=== PATIENT | female | born 1930 | race Caucasian/White ===

== ENCOUNTER 2017-03-15 11:15 | Observation (INO) ==
--- NOTE | 2017-03-15 11:39 | Emergency Department Note ---
Disposition Clinical Impression: Hypernatremia, Confusion Disposition: Admitted As Inpatient Condition: Fair Referrals: Vinod Roberson MD [Primary Care Provider] - Flavia Redmond [Family Provider] - Forms: ED Satisfaction Letter Time of Disposition: 13:18 Recheck wound or abnormal lab - General Chief Complaint: ED Recheck/Abnormal Lab/Rx Stated Complaint: "hypernatremia" Time Seen by Provider: 03/15/17 11:16 Source: EMS Mode of arrival: ambulatory Limitations: other Nursing Notes Reviewed: Yes Vital Signs Reviewed: Yes - History of Present Illness HPI Narrative: 87-year-old who was found to have a sodium of 155 seen by nephrology today sent in because of some increased confusion. The patient does have a history of dementia. On evaluation on arrival the patient does answer questions confused on date will not answer location. Pt Subjective Complaint: abnormal lab(s) Symptoms Since Prior Visit: fever (Confusion) Context: other (Patient was seen by nephrology and sent in for evaluation.) - Related Data Allergies Allergy/AdvReac Type Severity Reaction Status Date / Time duloxetine [From Cymbalta] Allergy See Verified 03/15/17 11:28 Comments levofloxacin [From Levaquin] Allergy See Verified 03/15/17 11:28 Comments pregabalin [From Lyrica] Allergy See Verified 03/15/17 11:28 Comments All systems ED: reviewed and negative except as stated. Constitutional: Denies: fever, chills, weakness, weight change Eyes: Denies: eye pain, eye discharge, vision change ENT ED: Denies: ear pain, throat pain, dental pain, hearing loss, epistaxis, congestion, dysphagia Cardiovascular: Denies: chest pain, palpitations, dyspnea on exertion, edema, syncope Respiratory: Denies: cough, dyspnea, wheezes, hemoptysis, stridor Gastrointestinal: Denies: abdominal pain, nausea, vomiting, diarrhea, constipation, hematemesis, melena, hematochezia Genitourinary: Denies: dysuria, frequency, hematuria, discharge Musculoskeletal: Denies: back pain, neck pain, arthralgia, myalgia Integumentary: Denies: rash, abrasion, lesions Neurological: Reports: confusion. Denies: headache, weakness, numbness, paresthesias, abnormal gait, vertigo Psychiatric: Denies: anxiety, depression, suicidal thoughts, homicidal thoughts , auditory hallucinations, visual hallucinations Endocrine: Denies: fatigue Hematological/Lymphatic: Denies: easy bleeding, easy bruising Allergic/Immunologic: Denies: facial swelling, urticaria Past Medical History - Past Medical History Medical history: Reports: CVA, diabetes, hyperlipidemia, hypertension, seizures Psychiatric history: Reports: anxiety, depression, other - Social History Smoking Status: Unknown if ever smoked Smokeless Tobacco Status: No Alcohol use: Reports: unknown Drug use: Reports: unknown Physical Exam - General Limitations: other General appearance: in no apparent distress, lethargic - Head Head exam: atraumatic, normocephalic, normal inspection - Eye Eye exam: Present: normal appearance, PERRL, EOMI - ENT ENT exam: normal exam, normal oropharynx, mucous membranes moist - Neck Neck exam: Present: normal inspection, full ROM, trachea midline - Chest Chest inspection: Present: normal inspection, symmetric chest wall rise - Respiratory Respiratory exam: Present: normal lung sounds bilaterally - Cardiovascular Cardiovascular exam: Present: regular rate, normal rhythm, normal heart sounds - Abdominal Exam Abdominal exam: Present: soft, Non-Tender. Absent: tenderness, distention, guarding, rebound, rigidity - Extremities Exam Extremities exam: Present: normal inspection, full ROM. Absent: tenderness, pedal edema - Expanded Lower Extremity Exam Neurovascular/Tendon exam: Absent: motor deficit, sensory deficit, tendon deficit - Back Exam Back exam: Present: normal inspection, full ROM. Absent: tenderness - Neurological Exam Neurological exam: Present: alert, oriented X3 - Psychiatric Psychiatric exam: Present: normal affect, normal mood - Skin Skin exam: Present: warm, dry, intact, normal color Course - Reevaluation(s) Reevaluation #1: 87-year-old who comes in with some confusion and hypernatremia. Family states she's not eating or drinking very much. Consultation obtained with nephrology who recommended D5 and a low rates and he will see in consult. Time: 14:25 - Consultations Consultation #1: Stress with , recommends D5 at 50 an hour and he will see in consult Time: 13:17 Consultation #2: Discussed with Dr. Mercado, admit. Time: 14:25 Vital Signs Temperature 98.1 F 03/15/17 11:17 Pulse Rate 62 03/15/17 11:17 Respiratory Rate 12 03/15/17 11:17 Blood Pressure 154/61 03/15/17 11:17 O2 Sat by Pulse Oximetry 100 03/15/17 11:17 Temperature 98.1 F 03/15/17 11:41 Pulse Rate 60 03/15/17 13:41 Respiratory Rate 18 03/15/17 13:41 Blood Pressure 152/58 03/15/17 13:41 O2 Sat by Pulse Oximetry 100 03/15/17 13:41 Oxygen Delivery Oxygen Delivery Nasal Cannula Recheck wound or abnormal lab - Lab Data Lab results reviewed: Yes I reviewed the patient's lab results. Result diagrams: 03/15/17 11:54 03/15/17 11:54 Lab Results 03/15/17 03/15/17 03/15/17 Range/Units 11:54 11:54 11:54 WBC 5.7 (4.3-11.1) K/mcL RBC 3.73 L (3.82-4.97) M/mcL Hgb 11.9 (11.5-15.4) g/dL Hct 34.4 L (35.3-44.9) % MCV 92.2 (83.0-100.0) fL MCH 31.9 (28.0-33.3) pg MCHC 34.6 (31.6-35.5) g/dL RDW 13.8 (11.5-14.5) % Plt Count 100 L (140-400) K/mcL MPV 10.0 (9.4-12.4) fL Immature Gran % 0.4 (0-4) % Seg Neutrophils % 64.5 % Lymphocytes % 26.7 % Monocytes % 7.1 % Eosinophils % 1.1 % Basophils % 0.2 % Neutrophils # 3.7 (1.6-8.9) K/mcL Lymphocytes # 1.5 (0.6-4.6) K/mcL Monocytes # 0.4 (0.0-1.3) K/mcL Eosinophils # 0.1 (0.0-0.6) K/mcL Basophils # 0.0 (0.0-0.2) K/mcL Immature Plt Fraction 2.6 (1.1-6.1) % PT 11.6 (9.4-12.1) Seconds INR 1.1 APTT 27.7 (26.0-36.0) Seconds Sodium 148 H (136-145) mEq/L Potassium 3.1 L (3.5-5.1) mEq/L Chloride 112 H (98-107) mEq/L Carbon Dioxide 29 (23-29) mEq/L BUN 14 (8-23) mg/dL Creatinine 0.68 (0.60-1.20) mg/dL Est GFR ( Amer) > 60 (> 60) Est GFR (Non-Af Amer) > 60 (> 60) BUN/Creatinine Ratio 21 (6-26) Glucose 131 H (70-105) mg/dL Calculated Osmolality 308 H (280-300) Calcium 8.6 (8.6-10.3) mg/dL Troponin I (< 0.04) ng/mL B-Natriuretic Peptide (Less than 100) pg/mL 03/15/17 03/15/17 Range/Units 11:54 11:54 WBC (4.3-11.1) K/mcL RBC (3.82-4.97) M/mcL Hgb (11.5-15.4) g/dL Hct (35.3-44.9) % MCV (83.0-100.0) fL MCH (28.0-33.3) pg MCHC (31.6-35.5) g/dL RDW (11.5-14.5) % Plt Count (140-400) K/mcL MPV (9.4-12.4) fL Immature Gran % (0-4) % Seg Neutrophils % % Lymphocytes % % Monocytes % % Eosinophils % % Basophils % % Neutrophils # (1.6-8.9) K/mcL Lymphocytes # (0.6-4.6) K/mcL Monocytes # (0.0-1.3) K/mcL Eosinophils # (0.0-0.6) K/mcL Basophils # (0.0-0.2) K/mcL Immature Plt Fraction (1.1-6.1) % PT (9.4-12.1) Seconds INR APTT (26.0-36.0) Seconds Sodium (136-145) mEq/L Potassium (3.5-5.1) mEq/L Chloride (98-107) mEq/L Carbon Dioxide (23-29) mEq/L BUN (8-23) mg/dL Creatinine (0.60-1.20) mg/dL Est GFR ( Amer) (> 60) Est GFR (Non-Af Amer) (> 60) BUN/Creatinine Ratio (6-26) Glucose (70-105) mg/dL Calculated Osmolality (280-300) Calcium (8.6-10.3) mg/dL Troponin I 0.04 H* (< 0.04) ng/mL B-Natriuretic Peptide 224 H (Less than 100) pg/mL - Radiology Data Radiology results reviewed: Yes I reviewed the patient's radiology results. Chest X-Ray 03/15/17 11:27 IMPRESSION: Cardiomegaly with mild interstitial edema and small bilateral pleural effusions. Findings could reflect congestive heart failure in the appropriate clinical setting. D/ / 03/15/2017 12:21:08 Jazmyn Belcher MD / [email or web address] Interpreting Provider: Jazmyn Belcher MD - EKG Data EKG attestation: Yes I reviewed and interpreted this EKG. EKG shows normal: sinus rhythm Rate: normal Rhythm: NSR [place]/QRS: left axis deviation Interpretation: no acute changes, nonspecific ST-T wave changes
[2017-03-15 12:03] LABS: Hemoglobin 11.9 g/dL (11.5-15.4)
[2017-03-15 12:05] LABS: Immature Platelets 2.6 % (1.1-6.1)
[2017-03-15 12:10] LABS: INR 1.1; Prothrombin Time 11.6 Seconds (9.4-12.1)
[2017-03-15 12:12] LABS: Activated Partial Thrombo Time 27.7 Seconds (26.0-36.0)
[2017-03-15 12:16] LABS: Basophils % 0.2 %; Eosinophils # 0.1 K/mcL (0.0-0.6); Eosinophils % 1.1 %; Hematocrit 34.4 % (35.3-44.9); Immature Granulocytes % 0.4 % (0-4); Lymphocytes # 1.5 K/mcL (0.6-4.6); Lymphocytes % 26.7 %; Mean Corpuscular HGB Conc 34.6 g/dL (31.6-35.5); Mean Corpuscular Hemoglobin 31.9 pg (28.0-33.3); Mean Corpuscular Volume 92.2 fL (83.0-100.0); Monocytes # 0.4 K/mcL (0.0-1.3); Monocytes % 7.1 %; Neutrophils # 3.7 K/mcL (1.6-8.9); Platelet Count 100 K/mcL (140-400); Red Blood Count 3.73 M/mcL (3.82-4.97); Red Cell Distribution Width 13.8 % (11.5-14.5); Segmented Neutrophils % 64.5 %
[2017-03-15 12:17] LABS: BUN/Creatinine Ratio 21 (6-26); Blood Urea Nitrogen 14 mg/dL (8-23); Calcium 8.6 mg/dL (8.6-10.3); Carbon Dioxide 29 mEq/L (23-29); Chloride 112 mEq/L (98-107); Glucose 131 mg/dL (70-105); Osmolality,Calculated 308 (280-300); Potassium 3.1 mEq/L (3.5-5.1); Sodium 148 mEq/L (136-145); eGFR For African Americans > 60 (> 60); eGFR For Non-African Americans > 60 (> 60)
[2017-03-15] MEDS: D5% in Water 1,000 ML IVC SCH (13:21)
[2017-03-15] MEDS ORDERED: Potassium Chloride 20 MEQ, Lidocaine 1% 2 ML in D5% in Water 250 ML IVPB ONE (14:50)
[2017-03-15] MEDS ORDERED: *HR* LORazepam 1 MG TABLET PO PRN (14:51)
--- NOTE | 2017-03-15 14:59 | Internal Med History&Physical ---
Date of Encounter: 03/15/17 Time of Encounter: 14:55 Assessment and Plan (1) Elevated troponin Current visit: Yes Status: Acute Likely due to demand ischemia. Trend troponin. Aspirin 81 mg and beta blockers. (2) Dementia Current visit: Yes Status: Acute Dementia with functional and cognitive decline. Patient currently requires assistance with her ADLs and IADLs. [facility] lives [facility]. She started having concerns for aspiration aspiration pneumonia. Qualifiers: Qualified Code(s): F03.90 - Unspecified dementia without behavioral disturbance (3) Elevated brain natriuretic peptide (BNP) level Current visit: Yes Status: Acute Likely due to diastolic CHF. X-rays suggestive of some excessive volume. Check echocardiogram. If there is any worsening over respiratory status with gentle hydration with D5W (given for hyponatremia) we will start IV diuresis. (4) Aspiration into respiratory tract Current visit: Yes Status: Acute Patient currently on thickened diet. Consult speech for further evaluation. Qualifiers: Qualified Code(s): T17.908A - Unspecified foreign body in respiratory tract, part unspecified causing other injury, initial encounter (5) Hypernatremia Current visit: Yes Status: Acute Hypernatremia is due to decreased free water intake. We will hydrate with D5W according to nephrology recommendations. Follow sodium every 6 hours. Consult speech therapy for evaluation of her swallowing. If patients who aspirates with thin liquids would have to discuss goals of care again and whether family wants NG tube for getting free water or feeding tube. It seems that she had received in the [facility] many times D5W for her hypernatremia but still the problem persists. Internal Medicine - H&P: HPI Chief complaint: elevated Na and confsion History of present illness: Ms. Herrera is a 87 year old female with history of dementia with functional and cognitive decline currently resides at rehab facility after recent hospitalization a month ago with pneumonia presents from PCP office because of hypernatremia confusion. Patient was found at the PCP office to have a sodium level of 155. Patient was confused lethargic the past week. Patient mentioned that this has happened several times when sodium was checked at the [facility] and she had received multiple times D5 water but the problem hypernatremia persists. Patient have problem with aspiration and cannot take him liquids or water and is currently on a thickened diet. Patient has been on oxygen since last discharge from the hospital with pneumonia. Family denies any fever or chills. No diarrhea. No obvious focal weakness although family mentioned that she tends to prefer her left side. She still has some cough intermittently. There is no obvious lower extremity swelling. Past Med Surg Social Fam HX - Past Medical History Medical history: CVA, diabetes, hyperlipidemia, hypertension, seizures Psychiatric history: anxiety, depression, other - Social History Smoking Status: Unknown if ever smoked Smokeless Tobacco Status: No Alcohol use: unknown Drug use: unknown Internal Medicine - H&P: Meds Albuterol Sulfate [Ventolin Hfa] 2 puff IH Q4H PRN 03/15/17 [History] Amlodipine Besylate 10 mg PO DAILY 03/15/17 [History] Divalproex (12 HR) [Depakote (12 HR)] 500 mg PO DAILY 03/15/17 [History] Donepezil [Aricept] 10 mg PO HS 03/15/17 [History] Escitalopram [Lexapro] 20 mg PO DAILY 03/15/17 [History] Gabapentin [Neurontin] 300 mg PO TID 03/15/17 [History] Glimepiride [Amaryl] 4 mg PO QAM 03/15/17 [History] Glucagon,Human Recombinant [Glucagen] 1 mg IM ONCE PRN 03/15/17 [History] Insulin LISPRO [HumaLOG] 0 unit SQ AD 03/15/17 [History] Ipratropium/Albuterol Neb [Duoneb] 3 ml IH Q4H PRN 03/15/17 [History] LORazepam [Ativan] 1 mg PO BID 03/15/17 [History] Levothyroxine [Synthroid] 50 mcg PO 0630 03/15/17 [History] Losartan Potassium [Cozaar] 50 mg PO DAILY 03/15/17 [History] Memantine HCl 10 mg PO BID 03/15/17 [History] Oxygen 2 l NS AD 03/15/17 [History] Propranolol HCl 40 mg PO DAILY 03/15/17 [History] Quetiapine Fumarate [Seroquel] 50 mg PO QAM 03/15/17 [History] Quetiapine Fumarate [Seroquel] 150 mg PO HS 03/15/17 [History] Simvastatin [Zocor] 20 mg PO HS 03/15/17 [History] 3 Allergy/AdvReac Type Severity Reaction Status Date / Time duloxetine [From Cymbalta] Allergy See Verified 03/15/17 11:28 Comments levofloxacin [From Levaquin] Allergy See Verified 03/15/17 11:28 Comments pregabalin [From Lyrica] Allergy See Verified 03/15/17 11:28 Comments All Systems PM: A 10-system review of systems was performed and is negative for pertinent findings except as documented above in the HPI. Review of systems: Full review of systems could not be obtained given patient mental status. - Constitutional Vitals: Temp Pulse Resp BP Pulse Ox 98.1 F 60 18 152/58 100 03/15/17 11:41 03/15/17 13:41 03/15/17 13:41 03/15/17 13:41 03/15/17 13:41 Exam: Gen.: patient is alert not in distress, pleasantly demented Cardiac: normal S1 S2 no additional sounds or murmurs. Chest: crackles in bases Abdomen: soft nontender nondistended normal bowel sounds lower extremity: lax calf muscles no swelling neuro: not compliant with neuro exam but appears to be moving extremeties Internal Med - H&P Results - Labs CBC & Chem 7: 03/15/17 11:54 03/15/17 11:54 Labs: Short CBC 03/15/17 Range/Units 11:54 WBC 5.7 (4.3-11.1) K/mcL Hgb 11.9 (11.5-15.4) g/dL Hct 34.4 L (35.3-44.9) % Plt Count 100 L (140-400) K/mcL Neutrophils # 3.7 (1.6-8.9) K/mcL BMP 03/15/17 11:54 Sodium 148 H Potassium 3.1 L Chloride 112 H Carbon Dioxide 29 BUN 14 Creatinine 0.68 Glucose 131 H Calcium 8.6 Cardiac Enzymes 03/15/17 Range/Units 11:54 Troponin I 0.04 H* (< 0.04) ng/mL - Impressions ITS Impressions Chest X-Ray 03/15/17 11:27 IMPRESSION: Cardiomegaly with mild interstitial edema and small bilateral pleural effusions. Findings could reflect congestive heart failure in the appropriate clinical setting. D/ / 03/15/2017 12:21:08 Jazmyn Belcher MD / [email or web address] Interpreting Provider: Jazmyn Belcher MD
[2017-03-15] MEDS ORDERED: NON-FORMULARY MEDICATION 1 EACH EACH (Oxygen [Oxygen] 2 L) NS SCH (15:00)
[2017-03-15] MEDS ORDERED: Ipratropium/Albuterol Neb 3 ML IH PRN (16:00)
[2017-03-15] MEDS: Gabapentin 300 MG CAPSULE PO SCH ×2 (20:23→20:31)
[2017-03-15] MEDS: *HR* Heparin 5,000 UNIT/ML VIAL SQ SCH (20:38)
[2017-03-15 20:48] LABS: Potassium 3.1 mEq/L (3.5-5.1)
[2017-03-15 23:10] LABS: Bilirubin,Urine Small (Negative); Clarity,Urine Cloudy (Clear); Color,Urine Dark Yellow (Yellow); Glucose,Urine (UA) 100 mg/dL (Normal)
[2017-03-15 23:11] LABS: Blood,Urine Large (Negative); Ketones,Urine 15 mg/dL (Negative); Leukocyte Esterase,Urine Small (Negative); Nitrite,Urine Negative (Negative); Protein,Urine 100 mg/dL (Neg-Trace); Specific Gravity,Urine 1.018 (1.010-1.025); Urobilinogen,Urine Normal (Normal)
[2017-03-15 23:17] LABS: Bacteria,Urine Many per hpf (None-Few); WBC,Urine 15-30 per hpf (0-3)
[2017-03-15 23:18] LABS: RBC,Urine 30-50 per hpf (0-3); Yeast,Urine Moderate per hpf (None Seen)
[2017-03-15 23:19] LABS: Hyaline Casts,Urine None Seen per lpf (None-Few); Squamous Epithelial Cell,Urine None Seen per lpf (None-Few)
[2017-03-16 00:43] LABS: Hemoglobin 10.4 g/dL (11.5-15.4); Immature Granulocytes % 0.4 % (0-4); Mean Platelet Volume 10.2 fL (9.4-12.4); Red Cell Distribution Width 13.6 % (11.5-14.5)
[2017-03-16 00:45] LABS: Basophils % 0.2 %; Eosinophils % 0.9 %; Hematocrit 30.9 % (35.3-44.9); Immature Platelets 2.2 % (1.1-6.1); Lymphocytes # 1.6 K/mcL (0.6-4.6); Lymphocytes % 33.6 %; Mean Corpuscular HGB Conc 33.7 g/dL (31.6-35.5); Mean Corpuscular Hemoglobin 31.3 pg (28.0-33.3); Mean Corpuscular Volume 93.1 fL (83.0-100.0); Monocytes # 0.3 K/mcL (0.0-1.3); Monocytes % 6.4 %; Neutrophils # 2.8 K/mcL (1.6-8.9); Red Blood Count 3.32 M/mcL (3.82-4.97); Segmented Neutrophils % 58.5 %
[2017-03-16 00:53] LABS: Platelet Count 90 K/mcL (140-400)
[2017-03-16 01:00] LABS: BUN/Creatinine Ratio 24 (6-26); Blood Urea Nitrogen 13 mg/dL (8-23); Calcium 8.1 mg/dL (8.6-10.3); Carbon Dioxide 26 mEq/L (23-29); Chloride 111 mEq/L (98-107); Glucose 204 mg/dL (70-105); Magnesium 1.4 mg/dL (1.6-2.6); Osmolality,Calculated 304 (280-300); Potassium 2.8 mEq/L (3.5-5.1); Sodium 144 mEq/L (136-145); eGFR For African Americans > 60 (> 60); eGFR For Non-African Americans > 60 (> 60)
[2017-03-16] MEDS ORDERED: Potassium Chloride 40 MEQ, Lidocaine 1% 2 ML in D5% in Water 500 ML IVPB ONE (05:03)
[2017-03-16] MEDS: *HR* Heparin 5,000 UNIT/ML VIAL SQ SCH ×2 (05:38→18:05)
[2017-03-16] MEDS: Insulin LISPRO 300 UNITS/3 ML VIAL SQ SCH ×3 (07:26→18:05)
[2017-03-16] MEDS: Famotidine 20 MG/2 ML VIAL IVP SCH (08:27)
[2017-03-16] MEDS: amLODIPine 5 MG TABLET PO SCH (08:27)
[2017-03-16] MEDS: Gabapentin 300 MG CAPSULE PO SCH ×3 (08:27→20:33)
[2017-03-16] MEDS: Divalproex (12 HR) 500 MG TABLET PO SCH (08:30)
--- NOTE | 2017-03-16 12:03 | Electrocardiograph Report ---
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
[2017-03-16 15:40] LABS: Bilirubin,Urine Small (Negative); Blood,Urine Large (Negative); Clarity,Urine Turbid (Clear); Color,Urine Dark Yellow (Yellow); Glucose,Urine (UA) Normal (Normal); Ketones,Urine Negative (Negative); Leukocyte Esterase,Urine Moderate (Negative); Nitrite,Urine Negative (Negative); PH,Urine 5.5 pH Units (5.0-8.0); Protein,Urine Trace mg/dL (Neg-Trace); Specific Gravity,Urine 1.015 (1.010-1.025)
[2017-03-16 15:42] LABS: Bacteria,Urine Many per hpf (None-Few); Squamous Epithelial Cell,Urine Moderate per lpf (None-Few); WBC,Urine 50-100 per hpf (0-3)
[2017-03-16 16:06] LABS: Hyaline Casts,Urine Few per lpf (None-Few)
[2017-03-16 16:07] LABS: Yeast,Urine Moderate per hpf (None Seen)
--- NOTE | 2017-03-16 16:27 | Nephrology Consult Note ---
Date of Encounter: 03/16/17 Time of Encounter: 16:00 Assessment and Plan (1) Hypernatremia Current Visit: Yes Status: Acute Hypernatremia likely due to poor free water access, resolved with D5W Continue to encourage po fluids (thickened) and if unable, may need further eval for PEG (2) Hypokalemia Current Visit: Yes Status: Acute Agree with repletion already done but will likely need more to correct ongoing deficit (3) Hypomagnesemia Current Visit: Yes Status: Acute Will replete magnesium iv History of Present Illness - Reason for Consult Consult date: 03/16/17 hypernatremia Requesting physician: Rufino Ansari - History of Present Illness 87 y o female with PMH of dementia brought in from pcp's office for confusion and sodium of 155 from [facility]. He apparently has a previous history of hypoernatremia in the past and has improved overnight on D5W with last sodium noted at 141. also note was potassium of 3.1 which actually dropped down to 2.8 today with low magnesium also noted. Most of history obtained from records as patient is a poor historian and daughter who was present at bedside. No N/v/D noted. No diuretics use noted Past Med Surg Social Fam HX - Past Medical History Medical history: CVA, diabetes, hyperlipidemia, hypertension, seizures Psychiatric history: anxiety, depression, other - Social History Smoking Status: Unknown if ever smoked Smokeless Tobacco Status: No Alcohol use: unknown Drug use: unknown - Family History Mother History Unknown: Yes Medications and Allergies Albuterol Sulfate [Ventolin Hfa] 2 puff IH Q4H PRN 03/15/17 [History] Amlodipine Besylate 10 mg PO DAILY 03/15/17 [History] Divalproex (12 HR) [Depakote (12 HR)] 500 mg PO DAILY 03/15/17 [History] Donepezil [Aricept] 10 mg PO HS 03/15/17 [History] Escitalopram [Lexapro] 20 mg PO DAILY 03/15/17 [History] Gabapentin [Neurontin] 300 mg PO TID 03/15/17 [History] Glimepiride [Amaryl] 4 mg PO QAM 03/15/17 [History] Glucagon,Human Recombinant [Glucagen] 1 mg IM ONCE PRN 03/15/17 [History] Insulin LISPRO [HumaLOG] 0 unit SQ AD 03/15/17 [History] Ipratropium/Albuterol Neb [Duoneb] 3 ml IH Q4H PRN 03/15/17 [History] LORazepam [Ativan] 1 mg PO BID 03/15/17 [History] Levothyroxine [Synthroid] 50 mcg PO 0630 03/15/17 [History] Losartan Potassium [Cozaar] 50 mg PO DAILY 03/15/17 [History] Memantine HCl 10 mg PO BID 03/15/17 [History] Oxygen 2 l NS AD 03/15/17 [History] Propranolol HCl 40 mg PO DAILY 03/15/17 [History] Quetiapine Fumarate [Seroquel] 50 mg PO QAM 03/15/17 [History] Quetiapine Fumarate [Seroquel] 150 mg PO HS 03/15/17 [History] Simvastatin [Zocor] 20 mg PO HS 03/15/17 [History] 3 Allergy/AdvReac Type Severity Reaction Status Date / Time duloxetine [From Cymbalta] Allergy See Verified 03/15/17 11:28 Comments levofloxacin [From Levaquin] Allergy See Verified 03/15/17 11:28 Comments pregabalin [From Lyrica] Allergy See Verified 03/15/17 11:28 Comments Review of Systems ROS unobtainable: due to mental status Exam - Vital Signs Vital signs: Initial Vital Signs Temp Pulse Resp BP Pulse Ox 98.1 F 62 12 154/61 100 03/15/17 11:17 03/15/17 11:17 03/15/17 11:17 03/15/17 11:17 03/15/17 11:17 Vital Signs - Last 8 Hours Temp Pulse Resp BP Pulse Ox 03/16/17 15:30 98.8 F 68 17 129/68 100 03/16/17 10:54 97.4 F L 55 20 121/46 97 Intake and Output 03/16/17 03/16/17 03/16/17 07:59 15:59 23:59 Intake Total 522 / 522 Output Total 750 / 750 Balance -228 / -228 Intake: IV Fluids 522 / 522 KCl 40 MEQ Xylocaine 2 ML In 522 / 522 Dextrose 5% 500 ML @ 130.5 mls/ hr IVPB ONCE ONE Rx#:[id number] Output: Catheter 750 / 750 Other: Weight 76.8 kg Blood Glucose* 221 160 Patient Weight 03/16/17 23:59 Weight 76.8 kg - General Appearance General appearance: chronically ill, frail EENT: ATNC, mucous membranes dry Neck: no JVD, supple Respiratory: clear Cardiology: no edema, normal S1, normal S2 Gastrointestinal: no tenderness, no guarding Integumentary: warm and dry Neurologic: disoriented Musculoskeletal: no deformities Psychiatric: cooperative Results - Lab Results 03/18/17 05:27 03/18/17 05:27 Most recent lab results Calcium 8.1 mg/dL (8.6-10.3) L 03/16/17 00:21 Magnesium 1.4 mg/dL (1.6-2.6) L 03/16/17 00:21 Consult Discharge Plan - Plan Referrals: Nica Babcock MD [Primary Care Provider] - Flavia Redmond [Family Provider] -
--- NOTE | 2017-03-16 17:14 | Internal Med Progress Note ---
Date of Encounter: 03/16/17 Time of Encounter: 17:11 - Assessment and plan (1) Dementia Current Visit: Yes Status: Acute Assessment and plan: per hx. Appears to be advancing and nearing end stage as she has not a in over a month. Discussed with daughter at bedside and mentation currently at baseline ; discussed alternative nutrition sources with daughter and patient /family would not want to pressure NG, PEG tube or TPN. Daughter would like patient to be able to eat/drink regular food/thin liquids. She is aware of increased risk for aspiration and aware of risk of aspiration pneumonia leading to sepsis and possible . Daughter reports she wants her mother to have quality of life. Continue supportive care, home Namenda, Seroquel, Aricept. Encourage PO intake. Qualifiers: Qualified Code(s): F03.90 - Unspecified dementia without behavioral disturbance (2) Hypokalemia Current Visit: Yes Status: Acute Assessment and plan: K 2.8; in the setting of poor PO intake. Mg 1.4. Both replaced. Monitor repeat BMP (3) Hypothyroidism Current Visit: Yes Status: Acute Assessment and plan: per hx. Cont home levothyroxine Qualifiers: Hypothyroidism type: acquired Qualified Code(s): E03.9 - Hypothyroidism, unspecified (4) DVT prophylaxis Current Visit: Yes Status: Acute Assessment and plan: heparin - Time Spent With Patient less than 15 minutes - Subjective Interval history: Seen and examined at bedside; patient is due to me. Information obtained from chart review and ECF staff as patient has severe dementia and unable to engage in conversation or provide details. Per ECF staff, patient was more confused a normal therefore she was sent to the hospital. Unable to obtain ROS due to altered mental status. - Constitutional Vitals: Temp Pulse Resp BP Pulse Ox 98.8 F 68 17 129/68 100 03/16/17 15:30 03/16/17 15:30 03/16/17 15:30 03/16/17 15:30 03/16/17 15:30 General appearance: Present: A&O X 1, morbidly obese - Head Head exam: Present: atraumatic, normocephalic - Eye Eye exam: Present: PERRL, conjuntiva pink, sclera anicteric Pupils: Present: PERRL - Neck Neck exam general surgery: Present: supple, trachea midline. Absent: lymphadenopathy - Respiratory Respiratory exam: Present: CTAB. Absent: accessory muscle use, rales, rhonchi, wheezes - Cardiovascular Cardiovascular exam: Present: RRR, +S1, +S2. Absent: diastolic murmur, gallop, rubs, systolic murmur - GI/Abdominal GI/Abdominal exam: Present: normal bowel sounds, soft, no peritoneal signs. Absent: distended, tenderness - Extremities Exam Extremities exam: Present: warm, radial pulses palpable and symmetrical. Absent : calf tenderness, cyanotic, pedal edema - Neurological Exam Neurological exam: Present: CN II-XII intact, no focal deficits. Absent: pronater drift, facial droop, speech deficit - Skin Skin exam: Present: dry, intact Internal Medicine: Result - Labs CBC & Chem 7: 03/16/17 00:21 03/16/17 15:12 Labs: Short CBC 03/16/17 Range/Units 00:21 WBC 4.7 (4.3-11.1) K/mcL Hgb 10.4 L D (11.5-15.4) g/dL Hct 30.9 L (35.3-44.9) % Plt Count 90 L (140-400) K/mcL Neutrophils # 2.8 (1.6-8.9) K/mcL BMP 03/15/17 03/16/17 03/16/17 18:37 00:21 00:21 Sodium 147 H 144 146 H Potassium 3.1 L 2.8 L Chloride 111 H Carbon Dioxide 26 BUN 13 Creatinine 0.54 L Glucose 204 H Calcium 8.1 L 03/16/17 03/16/17 08:46 15:12 Sodium 141 140 Potassium Chloride Carbon Dioxide BUN Creatinine Glucose Calcium Cardiac Enzymes 03/15/17 03/16/17 Range/Units 18:37 00:21 Troponin I 0.03 0.04 H* (< 0.04) ng/mL Urine 03/15/17 03/16/17 Range/Units 22:45 14:50 Urine Color Dark Yellow Dark Yellow (Yellow) Urine Clarity Cloudy A Turbid A (Clear) Urine pH 6.0 5.5 (5.0-8.0) pH Units Ur Specific Marcell 1.018 1.015 (1.010-1.025) Urine Protein 100 H Trace (Neg-Trace) mg/dL Urine Glucose (UA) 100 H Normal (Normal) mg/dL - ABG Interpretation ABG results: PT/INR, D-dimer PT 11.6 Seconds (9.4-12.1) 03/15/17 11:54 - Impressions Impressions Videofluoroscopic Swallow 03/16/17 13:00 IMPRESSION: Canceled swallow study. Please see separate speech pathology report for full discussion of findings and recommendations. D/ / Gamal Leong MD / Gamal Leong MD Interpreting Provider: Gamal Leong MD Consult Discharge Plan - Plan Referrals: Nica Babcock MD [Primary Care Provider] - Flavia Redmond [Family Provider] -
[2017-03-16 17:48] LABS: BUN/Creatinine Ratio 19 (6-26); Blood Urea Nitrogen 11 mg/dL (8-23); Calcium 8.3 mg/dL (8.6-10.3); Carbon Dioxide 27 mEq/L (23-29); Chloride 109 mEq/L (98-107); Glucose 143 mg/dL (70-105); Osmolality,Calculated 294 (280-300); Potassium 4.1 mEq/L (3.5-5.1); Sodium 141 mEq/L (136-145); eGFR For African Americans > 60 (> 60); eGFR For Non-African Americans > 60 (> 60)
[2017-03-16 18:11] LABS: Magnesium 1.4 mg/dL (1.6-2.6)
[2017-03-16] MEDS: D5% in Water 1,000 ML IVC SCH (20:32)
[2017-03-17] MEDS: *HR* Heparin 5,000 UNIT/ML VIAL SQ SCH ×2 (05:20→17:47)
[2017-03-17] MEDS: D5% in Water 1,000 ML IVC SCH ×2 (06:06→08:48)
[2017-03-17] MEDS: amLODIPine 5 MG TABLET PO SCH (08:49)
[2017-03-17] MEDS: Famotidine 20 MG/2 ML VIAL IVP SCH (08:49)
[2017-03-17] MEDS: Gabapentin 300 MG CAPSULE PO SCH ×3 (08:49→23:50)
[2017-03-17] MEDS: Insulin LISPRO 300 UNITS/3 ML VIAL SQ SCH ×3 (08:51→17:49)
[2017-03-17] MEDS: Divalproex (12 HR) 500 MG TABLET PO SCH (08:51)
--- NOTE | 2017-03-17 11:09 | Internal Med Progress Note ---
Date of Encounter: 03/17/17 Time of Encounter: 11:00 - Assessment and plan (1) Hypernatremia Current Visit: Yes Status: Acute Assessment and plan: This seems to be resolving with IV fluids. Repeat labs this morning. Continue with D5 water. Decrease the rate to 50 mL an hour. (2) Confusion Current Visit: Yes Status: Acute Assessment and plan: The patient has significant dementia. She is on multiple medications. I believe this is contributing to her dehydration. We will have to talk to the family about possible hospice enrollment. The patient will need to have work with social media campaign manager on Sunday regarding placement. (3) Elevated troponin Current Visit: Yes Status: Acute Assessment and plan: Likely demand ischemia. No reports of chest pain. EKG with no changes concerning for ischemia. (4) Dementia Current Visit: Yes Status: Acute Assessment and plan: per hx. Appears to be advancing and nearing end stage as she has not a in over a month. A discussion with the daughter was done by my colleague Merna Beckwith about TPN versus PEG tube placement and the daughter was not interested. As mentioned above the patient may be best suited for hospice. We will discuss with the daughter further. Qualifiers: Qualified Code(s): F03.90 - Unspecified dementia without behavioral disturbance (5) Hypomagnesemia Current Visit: Yes Status: Acute Assessment and plan: Check magnesium level this morning and replete as needed. (6) Hypothyroidism Current Visit: Yes Status: Acute Assessment and plan: per hx. Cont home levothyroxine Qualifiers: Hypothyroidism type: acquired Qualified Code(s): E03.9 - Hypothyroidism, unspecified (7) DVT prophylaxis Current Visit: Yes Status: Acute Assessment and plan: heparin - Subjective Interval history: No acute events. The patient has been afebrile. The patient was significant dementia and is refusing her oral medications. She seems to be alert only to self. Otherwise has been no issues. Modified swallow study was not done as the patient would not follow commands. - Constitutional Vitals: Temp Pulse Resp BP Pulse Ox 98.4 F 68 14 144/77 97 03/17/17 07:41 03/17/17 07:41 03/17/17 07:41 03/17/17 07:41 03/17/17 08:51 General appearance: Present: A&O X 1, morbidly obese Exam: GEN: NAD CVS: RRR. S1, S2, No m/r/g RESP: CTAB ABD: Soft, NT, ND, +BS EXT: No edema. 2+ DP. No rashes NEURO: Nonfocal Internal Medicine: Result - Labs CBC & Chem 7: 03/16/17 00:21 03/16/17 16:55 Labs: BMP 03/16/17 03/16/17 03/16/17 08:46 15:12 16:55 Sodium 141 140 141 Potassium 4.1 D Chloride 109 H Carbon Dioxide 27 BUN 11 Creatinine 0.59 L Glucose 143 H Calcium 8.3 L Urine 03/16/17 Range/Units 14:50 Urine Color Dark Yellow (Yellow) Urine Clarity Turbid A (Clear) Urine pH 5.5 (5.0-8.0) pH Units Ur Specific [place] 1.015 (1.010-1.025) Urine Protein Trace (Neg-Trace) mg/dL Urine Glucose (UA) Normal (Normal) mg/dL - ABG Interpretation ABG results: PT/INR, D-dimer PT 11.6 Seconds (9.4-12.1) 03/15/17 11:54 - Impressions Impressions Videofluoroscopic Swallow 03/16/17 13:00 IMPRESSION: Canceled swallow study. Please see separate speech pathology report for full discussion of findings and recommendations. D/ / Gamal Leong MD / Gamal Leong MD Interpreting Provider: Gamal Leong MD Consult Discharge Plan - Plan Referrals: Nica Babcock MD [Primary Care Provider] - Flavia Redmond [Family Provider] -
[2017-03-17 11:32] LABS: Basophils % 0.2 %; Hemoglobin 11.3 g/dL (11.5-15.4)
[2017-03-17 11:34] LABS: Eosinophils # 0.1 K/mcL (0.0-0.6); Eosinophils % 1.3 %; Hematocrit 31.9 % (35.3-44.9); Immature Granulocytes % 0.4 % (0-4); Immature Platelets 2.8 % (1.1-6.1); Lymphocytes # 1.6 K/mcL (0.6-4.6); Lymphocytes % 29.7 %; Mean Corpuscular HGB Conc 35.4 g/dL (31.6-35.5); Mean Corpuscular Hemoglobin 32.1 pg (28.0-33.3); Mean Corpuscular Volume 90.6 fL (83.0-100.0); Monocytes # 0.4 K/mcL (0.0-1.3); Monocytes % 7.7 %; Neutrophils # 3.3 K/mcL (1.6-8.9); Platelet Count 103 K/mcL (140-400); Red Blood Count 3.52 M/mcL (3.82-4.97); Red Cell Distribution Width 13.6 % (11.5-14.5); Segmented Neutrophils % 60.7 %
[2017-03-17 11:53] LABS: BUN/Creatinine Ratio 14 (6-26); Blood Urea Nitrogen 8 mg/dL (8-23); Calcium 7.9 mg/dL (8.6-10.3); Carbon Dioxide 28 mEq/L (23-29); Chloride 101 mEq/L (98-107); Glucose 217 mg/dL (70-105); Osmolality,Calculated 277 (280-300); Potassium 2.8 mEq/L (3.5-5.1); Sodium 131 mEq/L (136-145); eGFR For African Americans > 60 (> 60); eGFR For Non-African Americans > 60 (> 60)
[2017-03-17] MEDS ORDERED: Potassium Chloride 40 MEQ, Lidocaine 1% 2 ML in D5% in Water 500 ML IVPB ONE (15:19)
[2017-03-17] MEDS ORDERED: Magnesium Oxide 400 MG TABLET PO ONE (15:20)
--- NOTE | 2017-03-17 16:28 | Nephrology Progress Note ---
Date of Encounter: 03/17/17 Time of Encounter: 15:00 - Assessment and Plan (1) Hypernatremia Status: Acute Corrected, actually over-corrected with D5W at 131. Agree with decreasing rate (2) Hypokalemia Status: Acute initially at 4.1 and now down to 2.8? unsure which one is accurate s/p repletion (3) Hypomagnesemia Status: Acute Repleted at 1.7 Subjective Interval history: interim noted, pt seen and examined with no family at bedside, appears confused Objective - Vital Signs Vital signs: Vital Signs Temp Pulse Resp BP Pulse Ox 03/17/17 15:19 98.1 F 72 16 133/77 98 03/17/17 15:10 98.1 F 72 17 133/77 98 03/17/17 12:52 98.1 F 68 15 134/74 97 03/17/17 08:51 97 03/17/17 07:41 98.4 F 68 14 144/77 97 03/17/17 04:21 98.1 F 70 16 143/74 96 03/16/17 22:58 98.9 F 71 16 144/78 95 03/16/17 18:52 99.1 F 65 16 128/61 97 Intake and Output 03/17/17 03/17/17 03/17/17 07:59 15:59 23:59 Intake Total 1000 / 1000 Output Total 400 / 400 Balance -400 / -400 1000 / 1000 Intake: IV Fluids 1000 / 1000 Dextrose 5% 1,000 ML @ 50 mls/ 1000 / 1000 hr IVC .Q20H ARNOLDO Rx#:[id number] Output: Catheter 400 / 400 Other: Stool Size Small Stool Consistency soft Stool Color Brown # Bowel Movement Diapers 1 Weight 85.411 kg Blood Glucose* 243 220 Patient Weight 03/17/17 23:59 Weight 85.411 kg - General Appearance General appearance: Present: chronically ill, frail EENT: Present: ATNC, mucous membranes dry Neck: Present: no JVD, supple Cardiology: Present: no edema, normal S1, normal S2 Gastrointestinal: Present: no tenderness, no guarding Integumentary: Present: warm and dry Neurologic: Present: confused, disoriented Musculoskeletal: Present: no deformities Psychiatric: Present: cooperative - Lab 03/21/17 06:04 03/21/17 07:49 Most recent lab results Calcium 7.9 mg/dL (8.6-10.3) L 03/17/17 11:16 Magnesium 1.7 mg/dL (1.6-2.6) 03/17/17 11:16 - VTE Documentation of Mechanical Device: Intermittent pneumatic compression device Consult Discharge Plan - Plan Additional Instructions: Continue doxycycline and amoxicillin for 5 days. Start hospice services as outpatient, pureed diet with nectar thick liquids Referrals: Nica Babcock MD [Primary Care Provider] - Flavia Redmond [Family Provider] - Prescriptions: Amoxicillin [Amoxil] 500 mg PO TID #15 capsule Doxycycline 100 mg PO BID #10 capsule LORazepam [Ativan] 1 mg PO BID #10 tablet
[2017-03-18] MEDS: *HR* Heparin 5,000 UNIT/ML VIAL SQ SCH ×2 (05:47→16:50)
[2017-03-18 06:34] LABS: BUN/Creatinine Ratio 11 (6-26); Blood Urea Nitrogen 7 mg/dL (8-23); Calcium 8.3 mg/dL (8.6-10.3); Carbon Dioxide 27 mEq/L (23-29); Chloride 101 mEq/L (98-107); Glucose 208 mg/dL (70-105); Magnesium 1.5 mg/dL (1.6-2.6); Osmolality,Calculated 282 (280-300); Potassium 3.3 mEq/L (3.5-5.1); Sodium 134 mEq/L (136-145); eGFR For African Americans > 60 (> 60); eGFR For Non-African Americans > 60 (> 60)
[2017-03-18 06:42] LABS: Basophils % 0.2 %; Eosinophils % 0.2 %; Hematocrit 31.7 % (35.3-44.9); Hemoglobin 11.3 g/dL (11.5-15.4); Immature Granulocytes % 0.6 % (0-4); Lymphocytes # 1.6 K/mcL (0.6-4.6); Lymphocytes % 25.2 %; Mean Corpuscular HGB Conc 35.6 g/dL (31.6-35.5); Mean Corpuscular Hemoglobin 32.2 pg (28.0-33.3); Mean Corpuscular Volume 90.3 fL (83.0-100.0); Mean Platelet Volume 10.5 fL (9.4-12.4); Monocytes # 0.4 K/mcL (0.0-1.3); Neutrophils # 4.3 K/mcL (1.6-8.9); Platelet Count 111 K/mcL (140-400); Red Blood Count 3.51 M/mcL (3.82-4.97); Red Cell Distribution Width 13.6 % (11.5-14.5); Segmented Neutrophils % 67.8 %
[2017-03-18] MEDS: Divalproex (12 HR) 500 MG TABLET PO SCH (08:55)
[2017-03-18] MEDS: amLODIPine 5 MG TABLET PO SCH (08:56)
[2017-03-18] MEDS: Insulin LISPRO 300 UNITS/3 ML VIAL SQ SCH ×3 (08:57→16:50)
[2017-03-18] MEDS: Gabapentin 300 MG CAPSULE PO SCH ×3 (08:57→20:52)
[2017-03-18] MEDS: Famotidine 20 MG/2 ML VIAL IVP SCH (09:05)
[2017-03-18] MEDS ORDERED: Potassium Chloride 40 MEQ, Lidocaine 1% 2 ML in D5% in Water 500 ML IVPB ONE (10:16)
--- NOTE | 2017-03-18 10:36 | Internal Med Progress Note ---
Date of Encounter: 03/18/17 Time of Encounter: 10:15 - Assessment and plan (1) Hypernatremia Current Visit: Yes Status: Acute Assessment and plan: Sodium 134. Continue with D5 water. I will let nephrology managed the rate. (2) Confusion Current Visit: Yes Status: Acute Assessment and plan: The patient has significant dementia. She is on multiple medications. I believe this is contributing to her dehydration. We will talk to family tomorrow while palliative his back on service for possible hospice enrollment. The patient will need to have work with social contact worker on Sunday regarding placement. (3) Elevated troponin Current Visit: Yes Status: Acute Assessment and plan: Likely demand ischemia. No reports of chest pain. EKG with no changes concerning for ischemia. (4) Dementia Current Visit: Yes Status: Acute Assessment and plan: per hx. Appears to be advancing and nearing end stage as she has not a in over a month. A discussion with the daughter was done by my colleague Merna Beckwith about TPN versus PEG tube placement and the daughter was not interested. As mentioned above the patient may be best suited for hospice. We will discuss with the daughter further. Qualifiers: Qualified Code(s): F03.90 - Unspecified dementia without behavioral disturbance (5) Hypomagnesemia Current Visit: Yes Status: Acute Assessment and plan: We will give IV magnesium this morning. She is refusing oral.. (6) Hypothyroidism Current Visit: Yes Status: Acute Assessment and plan: per hx. Cont home levothyroxine Qualifiers: Hypothyroidism type: acquired Qualified Code(s): E03.9 - Hypothyroidism, unspecified (7) DVT prophylaxis Current Visit: Yes Status: Acute Assessment and plan: heparin - Subjective Interval history: No acute events. The patient has been afebrile. She continues to refuse oral medications. The patient was significant dementia and is refusing her oral medications. She seems to be alert only to self. Otherwise has been no issues. - Constitutional Vitals: Temp Pulse Resp BP Pulse Ox 97.9 F 73 16 148/65 100 03/18/17 06:56 03/18/17 06:56 03/18/17 06:56 03/18/17 06:56 03/18/17 06:56 General appearance: Present: A&O X 1, morbidly obese Exam: GEN: NAD CVS: RRR. S1, S2, No m/r/g RESP: CTAB ABD: Soft, NT, ND, +BS EXT: No edema. 2+ DP. No rashes NEURO: Nonfocal Internal Medicine: Result - Labs CBC & Chem 7: 03/18/17 05:27 03/18/17 05:27 Labs: Short CBC 03/17/17 03/18/17 Range/Units 11:16 05:27 WBC 5.4 6.4 (4.3-11.1) K/mcL Hgb 11.3 L 11.3 L (11.5-15.4) g/dL Hct 31.9 L 31.7 L (35.3-44.9) % Plt Count 103 L 111 L (140-400) K/mcL Neutrophils # 3.3 4.3 (1.6-8.9) K/mcL BMP 03/17/17 03/18/17 11:16 05:27 Sodium 131 L D 134 L Potassium 2.8 L D 3.3 L Chloride 101 101 Carbon Dioxide 28 27 BUN 8 7 L Creatinine 0.59 L 0.64 Glucose 217 H 208 H Calcium 7.9 L 8.3 L - ABG Interpretation ABG results: PT/INR, D-dimer PT 11.6 Seconds (9.4-12.1) 03/15/17 11:54 - VTE Documentation of Mechanical Device: Intermittent pneumatic compression device Consult Discharge Plan - Plan Referrals: Nica Babcock MD [Primary Care Provider] - Flavia Redmond [Family Provider] -
[2017-03-18] MEDS: cefTRIAXone 1,000 MG in Water for inj. (sterile) 10 ML IVP SCH (11:39)
--- NOTE | 2017-03-18 15:26 | Nephrology Progress Note ---
Date of Encounter: 03/18/17 Time of Encounter: 15:00 - Assessment and Plan (1) Hypernatremia Status: Acute Corrected, now at 134. continue free water if possible po or iv Agree with establishing goals of care Palliative care consult definitely needed, will sign off at this point, please reconsult prn (2) Hypokalemia Status: Acute noted at 3.3, correcting, continue repletion (3) Hypomagnesemia Status: Acute Down to 1.5, replete per primary team Subjective Interval history: interim noted, pt seen and examined with no family at bedside, still appears confused Objective - Vital Signs Vital signs: Vital Signs Temp Pulse Resp BP Pulse Ox 03/18/17 15:08 98.4 F 79 14 130/74 98 03/18/17 10:56 98.5 F 89 15 151/71 96 03/18/17 06:56 97.9 F 73 16 148/65 100 03/18/17 03:44 98.1 F 66 18 136/70 94 03/17/17 20:36 97.3 F L 69 18 165/70 97 Intake and Output 03/17/17 03/18/17 03/18/17 23:59 07:59 15:59 Output Total 700 / 700 350 / 350 200 / 200 Balance -700 / -700 -350 / -350 -200 / -200 Output: Catheter 700 / 700 350 / 350 200 / 200 Other: Meal Lunch Percent of Meal Consumed 10% Stool Size Large Smear Stool Consistency soft loose formed Stool Color Brown Brown # Bowel Movement Diapers 1 1 Weight 85.865 kg Blood Glucose* 262 196 237 Patient Weight 03/18/17 23:59 Weight 85.865 kg - General Appearance General appearance: Present: chronically ill, frail EENT: Present: ATNC, mucous membranes dry Neck: Present: no JVD, supple Respiratory: Present: clear Cardiology: Present: no edema, normal S1, normal S2 Gastrointestinal: Present: no tenderness, no guarding Integumentary: Present: warm and dry Neurologic: Present: confused, disoriented Musculoskeletal: Present: no deformities Psychiatric: Present: cooperative - Lab 03/21/17 06:04 03/21/17 07:49 Most recent lab results Calcium 8.3 mg/dL (8.6-10.3) L 03/18/17 05:27 Magnesium 1.5 mg/dL (1.6-2.6) L 03/18/17 05:27 - VTE Documentation of Mechanical Device: Intermittent pneumatic compression device Consult Discharge Plan - Plan Additional Instructions: Continue doxycycline and amoxicillin for 5 days. Start hospice services as outpatient, pureed diet with nectar thick liquids Referrals: Nica Babcock MD [Primary Care Provider] - Flavia Redmond [Family Provider] - Prescriptions: Amoxicillin [Amoxil] 500 mg PO TID #15 capsule Doxycycline 100 mg PO BID #10 capsule LORazepam [Ativan] 1 mg PO BID #10 tablet
[2017-03-18] MEDS: D5% in Water 1,000 ML IVC SCH (18:11)
[2017-03-19] MEDS: *HR* Heparin 5,000 UNIT/ML VIAL SQ SCH ×2 (05:44→17:19)
[2017-03-19 05:51] LABS: Basophils % 0.3 %; Eosinophils # 0.1 K/mcL (0.0-0.6); Eosinophils % 1.5 %; Hematocrit 30.7 % (35.3-44.9); Hemoglobin 10.9 g/dL (11.5-15.4); Immature Granulocytes % 0.7 % (0-4); Lymphocytes # 1.8 K/mcL (0.6-4.6); Lymphocytes % 30.2 %; Mean Corpuscular HGB Conc 35.5 g/dL (31.6-35.5); Mean Corpuscular Hemoglobin 31.9 pg (28.0-33.3); Mean Corpuscular Volume 89.8 fL (83.0-100.0); Mean Platelet Volume 10.3 fL (9.4-12.4); Monocytes # 0.5 K/mcL (0.0-1.3); Monocytes % 7.9 %; Neutrophils # 3.6 K/mcL (1.6-8.9); Nucleated Red Blood Cells 0.3 /100 WBC (0); Platelet Count 114 K/mcL (140-400); Red Blood Count 3.42 M/mcL (3.82-4.97); Red Cell Distribution Width 13.9 % (11.5-14.5); Segmented Neutrophils % 59.4 %
[2017-03-19 06:16] LABS: BUN/Creatinine Ratio 7 (6-26); Blood Urea Nitrogen 4 mg/dL (8-23); Carbon Dioxide 26 mEq/L (23-29); Chloride 100 mEq/L (98-107); Glucose 172 mg/dL (70-105); Osmolality,Calculated 275 (280-300); Potassium 3.3 mEq/L (3.5-5.1); Sodium 132 mEq/L (136-145); eGFR For African Americans > 60 (> 60); eGFR For Non-African Americans > 60 (> 60)
[2017-03-19] MEDS: Insulin LISPRO 300 UNITS/3 ML VIAL SQ SCH ×3 (08:30→17:19)
[2017-03-19] MEDS: cefTRIAXone 1,000 MG in Water for inj. (sterile) 10 ML IVP SCH (08:31)
[2017-03-19] MEDS: Famotidine 20 MG/2 ML VIAL IVP SCH (08:31)
[2017-03-19] MEDS: amLODIPine 5 MG TABLET PO SCH (08:32)
[2017-03-19] MEDS: Gabapentin 300 MG CAPSULE PO SCH ×3 (08:32→21:07)
[2017-03-19] MEDS: Divalproex (12 HR) 500 MG TABLET PO SCH (08:32)
[2017-03-19] MEDS ORDERED: Potassium Chloride 40 MEQ, Lidocaine 1% 2 ML in D5% in Water 500 ML IVPB ONE (11:26)
--- NOTE | 2017-03-19 12:40 | Internal Med Progress Note ---
Date of Encounter: 03/19/17 Time of Encounter: 11:00 - Assessment and plan (1) Hypernatremia Current Visit: Yes Status: Acute Assessment and plan: Sodium 2. Continue with D5 water. I will let nephrology managed the rate. (2) UTI (urinary tract infection) Current Visit: Yes Status: Acute Assessment and plan: Groin enterococcus and staph epi. Continue ceftriaxone. Qualifiers: Urinary tract infection type: catheter-associated UTI Indwelling urinary catheter type: indwelling urethral catheter Encounter type: subsequent encounter Qualified Code(s): T83.511D - Infection and inflammatory reaction due to indwelling urethral catheter, subsequent encounter; N39.0 - Urinary tract infection, site not specified; N39.0 - Urinary tract infection, site not specified (3) Confusion Current Visit: Yes Status: Acute Assessment and plan: The patient has significant dementia. She is on multiple medications. I believe this is contributing to her dehydration. Consult palliative. Goals of care. She may benefit from hospice. (4) Elevated troponin Current Visit: Yes Status: Acute Assessment and plan: Likely demand ischemia. No reports of chest pain. EKG with no changes concerning for ischemia. (5) Dementia Current Visit: Yes Status: Acute Assessment and plan: Consult palliative per hx. Appears to be advancing and nearing end stage as she has not a in over a month. A discussion with the daughter was done by my colleague Merna Beckwith about TPN versus PEG tube placement and the daughter was not interested. As mentioned above the patient may be best suited for hospice. Consult palliative Qualifiers: Qualified Code(s): F03.90 - Unspecified dementia without behavioral disturbance (6) Hypomagnesemia Current Visit: Yes Status: Acute Assessment and plan: Check mag levels. (7) Hypothyroidism Current Visit: Yes Status: Acute Assessment and plan: per hx. Cont home levothyroxine Qualifiers: Hypothyroidism type: acquired Qualified Code(s): E03.9 - Hypothyroidism, unspecified (8) DVT prophylaxis Current Visit: Yes Status: Acute Assessment and plan: heparin - Subjective Interval history: No acute events. The patient has been afebrile. She again continues to refuse any medical care. The patient with significant dementia and is refusing her oral medications. She seems to be alert only to self. Otherwise has been no issues. - Constitutional Vitals: Temp Pulse Resp BP Pulse Ox 98.3 F 65 16 126/82 97 03/19/17 12:04 03/19/17 12:04 03/19/17 12:04 03/19/17 12:04 03/19/17 12:04 General appearance: Present: A&O X 1, morbidly obese Exam: GEN: NAD CVS: RRR. S1, S2, No m/r/g RESP: CTAB ABD: Soft, NT, ND, +BS EXT: No edema. 2+ DP. No rashes NEURO: Nonfoca Internal Medicine: Result - Labs CBC & Chem 7: 03/19/17 04:36 03/19/17 04:36 Labs: Short CBC 03/19/17 Range/Units 04:36 WBC 6.0 (4.3-11.1) K/mcL Hgb 10.9 L (11.5-15.4) g/dL Hct 30.7 L (35.3-44.9) % Plt Count 114 L (140-400) K/mcL Neutrophils # 3.6 (1.6-8.9) K/mcL BMP 03/19/17 04:36 Sodium 132 L Potassium 3.3 L Chloride 100 Carbon Dioxide 26 BUN 4 L Creatinine 0.56 L Glucose 172 H Calcium 8.0 L Urine 03/15/17 Range/Units 22:45 Urine Color Dark Yellow (Yellow) Urine Clarity Cloudy A (Clear) Urine pH 6.0 (5.0-8.0) pH Units Ur Specific [place] 1.018 (1.010-1.025) Urine Protein 100 H (Neg-Trace) mg/dL Urine Glucose (UA) 100 H (Normal) mg/dL - ABG Interpretation ABG results: PT/INR, D-dimer PT 11.6 Seconds (9.4-12.1) 03/15/17 11:54 - VTE Documentation of Mechanical Device: Intermittent pneumatic compression device Consult Discharge Plan - Plan Referrals: Nica Babcock MD [Primary Care Provider] - Flavia Redmond [Family Provider] -
--- NOTE | 2017-03-19 14:47 | Palliative - Consult Note ---
Date of Encounter: 03/19/17 Time of Encounter: 14:30 - Assessment and Plan (1) Dysphagia Current Visit: Yes Status: Acute Assessment and plan: Unable to participate with speech therapy for eval. Daughters do not desire feeding tube. Will work on plan with POA Qualifiers: Dysphagia type: unspecified Qualified Code(s): R13.10 - Dysphagia, unspecified (2) Goals of care, counseling/discussion Current Visit: Yes Status: Acute Assessment and plan: Spoke with 2 daughters at pt bedside, and daughter Isaura (POA) by phone - she is ill and unable to come into hospital. Discussed goals of care at length - they had hope that with fluids and therapy at ECF she would improve to go home, but that has not happened and she has further declined despite treatment. Isaura desires her transition to comfort care and interested in having hospice involved, however, her ECF bed was not held and she will be new placement. They desire her to go [facility] in [place] closer to her home and family. Isaura aware that it would be private pay, and has priced some ECF's in their area. Will d/W social work re potential bed at [facility]. Code status transitioned to DNRCC. Will f/u in am. (3) Dementia Current Visit: Yes Status: Acute Qualifiers: Qualified Code(s): F03.90 - Unspecified dementia without behavioral disturbance (4) Hypernatremia Current Visit: Yes Status: Acute Assessment and plan: Resolved. Has not improved mental status Palliative-CN HPI - Data of Consult Consult date: 03/19/17 Requesting Physician: Olivia Fairchild CNP Primary Care Provider: Nica Babcock MD Family Provider: [employer] Provider - Consult Narrative History of present illness: Ms. Herrera is a 87 year old female with a history of dementia who presented with mental status changes and dehydration. Patient unable to give history - pt 2 daughters at bedside are providing some information, although they are not POA. Stated she was in [place] for same situation end of January and was discharged to [facility]. She was also treated for pneumonia. She was receiving fluids at [facility] for dehydration and hypernatremia as well. Family states last oral intake was 03/11, ate 1/2 cupcake on her birthday, and has refused oral feedings since. She has received IV fluids here which has improved sodium - nephrology was following as well. Upon my visit, she opens eyes when name called, but no verbal response. Does not answer any questions. Has refused all oral feedings and medications. Discussions with family appear that they do not want any type of prolonged care or artificial feeding. CC: Olivia Fairchild CNP Past Med Surg Social Fam HX - Past Medical History Medical history: diabetes, hyperlipidemia, hypertension, seizures Psychiatric history: anxiety, depression, other - Social History Smoking Status: Unknown if ever smoked Smokeless Tobacco Status: No Alcohol use: unknown Drug use: unknown - Family History Mother History Unknown: Yes Medications and Allergies Albuterol Sulfate [Ventolin Hfa] 2 puff IH Q4H PRN 03/15/17 [History] Amlodipine Besylate 10 mg PO DAILY 03/15/17 [History] Divalproex (12 HR) [Depakote (12 HR)] 500 mg PO DAILY 03/15/17 [History] Donepezil [Aricept] 10 mg PO HS 03/15/17 [History] Escitalopram [Lexapro] 20 mg PO DAILY 03/15/17 [History] Gabapentin [Neurontin] 300 mg PO TID 03/15/17 [History] Glimepiride [Amaryl] 4 mg PO QAM 03/15/17 [History] Glucagon,Human Recombinant [Glucagen] 1 mg IM ONCE PRN 03/15/17 [History] Insulin LISPRO [HumaLOG] 0 unit SQ AD 03/15/17 [History] Ipratropium/Albuterol Neb [Duoneb] 3 ml IH Q4H PRN 03/15/17 [History] LORazepam [Ativan] 1 mg PO BID 03/15/17 [History] Levothyroxine [Synthroid] 50 mcg PO 0630 03/15/17 [History] Losartan Potassium [Cozaar] 50 mg PO DAILY 03/15/17 [History] Memantine HCl 10 mg PO BID 03/15/17 [History] Oxygen 2 l NS AD 03/15/17 [History] Propranolol HCl 40 mg PO DAILY 03/15/17 [History] Quetiapine Fumarate [Seroquel] 50 mg PO QAM 03/15/17 [History] Quetiapine Fumarate [Seroquel] 150 mg PO HS 03/15/17 [History] Simvastatin [Zocor] 20 mg PO HS 03/15/17 [History] 3 Allergy/AdvReac Type Severity Reaction Status Date / Time duloxetine [From Cymbalta] Allergy See Verified 03/15/17 11:28 Comments levofloxacin [From Levaquin] Allergy See Verified 03/15/17 11:28 Comments pregabalin [From Lyrica] Allergy See Verified 03/15/17 11:28 Comments Palliative Care-Exam - Constitutional Vitals: Temp Pulse Resp BP Pulse Ox 98.3 F 65 16 126/82 97 03/19/17 12:04 03/19/17 12:04 03/19/17 12:04 03/19/17 12:04 03/19/17 12:04 General appearance: Present: disheveled, obese - Head Head Exam: Present: normal inspection, normocephalic - Eye Pupils: Present: PERRL - Respiratory Respiratory exam: Present: decreased breath sounds, CTAB - Cardiovascular Cardiovascular exam: Present: +S1, +S2 - GI/Abdominal Exam GI/Abdominal exam: Present: normal bowel sounds, soft - Catheter Type: Urethral (Solorio) - Extremities Exam Extremities exam: Present: normal capillary refill, normal inspection - Neurological Exam Neurological exam: Present: altered Additional comments: Patient opens eyes when name called. No verbal response. Does not follow commands. - Skin Skin exam: Present: pallor, warm Internal Medicine - CN: Reslt - Labs CBC & Chem 7: 03/19/17 04:36 03/19/17 04:36 Labs: Short CBC 03/19/17 Range/Units 04:36 WBC 6.0 (4.3-11.1) K/mcL Hgb 10.9 L (11.5-15.4) g/dL Hct 30.7 L (35.3-44.9) % Plt Count 114 L (140-400) K/mcL Neutrophils # 3.6 (1.6-8.9) K/mcL BMP 03/19/17 04:36 Sodium 132 L Potassium 3.3 L Chloride 100 Carbon Dioxide 26 BUN 4 L Creatinine 0.56 L Glucose 172 H Calcium 8.0 L Urine 03/15/17 Range/Units 22:45 Urine Color Dark Yellow (Yellow) Urine Clarity Cloudy A (Clear) Urine pH 6.0 (5.0-8.0) pH Units Ur Specific [place] 1.018 (1.010-1.025) Urine Protein 100 H (Neg-Trace) mg/dL Urine Glucose (UA) 100 H (Normal) mg/dL - ABG Interpretation ABG results: PT/INR, D-dimer PT 11.6 Seconds (9.4-12.1) 03/15/17 11:54 Consult Discharge Plan - Plan Referrals: Nica Babcock MD [Primary Care Provider] - Flavia Redmond [Family Provider] - Palliative Quality Palliative Quality: Screen for Code Status: Yes, Screen for Goals of Care: Yes, Screen for Pain: Yes, If Pain Regimen Started, Initiate Bowel Regimen: NA, Screen for Nausea/Vomitting: Yes
[2017-03-20 04:48] LABS: Basophils % 0.4 %; Eosinophils # 0.1 K/mcL (0.0-0.6); Eosinophils % 2.1 %; Hematocrit 31.9 % (35.3-44.9); Hemoglobin 11.1 g/dL (11.5-15.4); Immature Granulocytes % 0.9 % (0-4); Lymphocytes # 1.7 K/mcL (0.6-4.6); Lymphocytes % 32.6 %; Mean Corpuscular HGB Conc 34.8 g/dL (31.6-35.5); Mean Corpuscular Hemoglobin 31.6 pg (28.0-33.3); Mean Corpuscular Volume 90.9 fL (83.0-100.0); Mean Platelet Volume 9.6 fL (9.4-12.4); Monocytes # 0.4 K/mcL (0.0-1.3); Monocytes % 7.7 %; Platelet Count 123 K/mcL (140-400); Red Blood Count 3.51 M/mcL (3.82-4.97); Red Cell Distribution Width 14.2 % (11.5-14.5); Segmented Neutrophils % 56.3 %
[2017-03-20 05:04] LABS: BUN/Creatinine Ratio 6 (6-26); Blood Urea Nitrogen 4 mg/dL (8-23); Calcium 8.4 mg/dL (8.6-10.3); Carbon Dioxide 28 mEq/L (23-29); Chloride 100 mEq/L (98-107); Glucose 175 mg/dL (70-105); Osmolality,Calculated 277 (280-300); Potassium 3.5 mEq/L (3.5-5.1); Sodium 133 mEq/L (136-145); eGFR For African Americans > 60 (> 60); eGFR For Non-African Americans > 60 (> 60)
[2017-03-20] MEDS: *HR* Heparin 5,000 UNIT/ML VIAL SQ SCH ×2 (05:55→18:30)
[2017-03-20] MEDS ORDERED: Potassium Chloride 40 MEQ, Lidocaine 1% 2 ML in D5% in Water 500 ML IVPB ONE (10:19)
--- NOTE | 2017-03-20 10:24 | Internal Med Progress Note ---
Date of Encounter: 03/20/17 Time of Encounter: 10:22 - Assessment and plan (1) Hypernatremia Current Visit: Yes Status: Acute Assessment and plan: Sodium improving. Continue with D5 water. I will let nephrology managed the rate. (2) UTI (urinary tract infection) Current Visit: Yes Status: Acute Assessment and plan: Groing enterococcus and staph epi. Change antibiotics to vancomycin based on the sensitivities.. Qualifiers: Urinary tract infection type: catheter-associated UTI Indwelling urinary catheter type: indwelling urethral catheter Encounter type: subsequent encounter Qualified Code(s): T83.511D - Infection and inflammatory reaction due to indwelling urethral catheter, subsequent encounter; N39.0 - Urinary tract infection, site not specified; N39.0 - Urinary tract infection, site not specified (3) Confusion Current Visit: Yes Status: Acute Assessment and plan: The patient has significant dementia. She is on multiple medications. I believe this is contributing to her dehydration. Plan is for hospice at discharge to nursing facility. (4) Elevated troponin Current Visit: Yes Status: Acute Assessment and plan: Likely demand ischemia. No reports of chest pain. EKG with no changes concerning for ischemia. (5) Dementia Current Visit: Yes Status: Acute Assessment and plan: Palliative saw the patient and plans are to transfer to nursing sodium with hospice care. Dementia seems to be advancing and nearing end stage. A discussion with the daughter was done by my colleague Merna Beckwith about TPN versus PEG tube placement and the daughter was not interested. Qualifiers: Qualified Code(s): F03.90 - Unspecified dementia without behavioral disturbance (6) Hypomagnesemia Current Visit: Yes Status: Acute Assessment and plan: Give mag sulfate today. (7) Hypothyroidism Current Visit: Yes Status: Acute Assessment and plan: switched to IV levothyroxine Qualifiers: Hypothyroidism type: acquired Qualified Code(s): E03.9 - Hypothyroidism, unspecified (8) DVT prophylaxis Current Visit: Yes Status: Acute Assessment and plan: heparin - Subjective Interval history: No acute events. The patient has been afebrile. The patient with significant dementia and is refusing her oral medications despite our efforts. She was seen by palliative.. She seems to be alert only to self. Otherwise has been no issues. - Constitutional Vitals: Temp Pulse Resp BP Pulse Ox 98.2 F 75 17 143/58 95 03/20/17 08:25 03/20/17 08:25 03/20/17 08:25 03/20/17 08:25 03/20/17 08:25 General appearance: Present: A&O X 1, morbidly obese Exam: GEN: NAD CVS: RRR. S1, S2, No m/r/g RESP: CTAB ABD: Soft, NT, ND, +BS EXT: No edema. 2+ DP. No rashes NEURO: [facility]: Result - Labs CBC & Chem 7: 03/20/17 04:27 03/20/17 04:27 Labs: Short CBC 03/20/17 Range/Units 04:27 WBC 5.3 (4.3-11.1) K/mcL Hgb 11.1 L (11.5-15.4) g/dL Hct 31.9 L (35.3-44.9) % Plt Count 123 L (140-400) K/mcL Neutrophils # 3.0 (1.6-8.9) K/mcL BMP 03/20/17 04:27 Sodium 133 L Potassium 3.5 Chloride 100 Carbon Dioxide 28 BUN 4 L Creatinine 0.64 Glucose 175 H Calcium 8.4 L - ABG Interpretation ABG results: PT/INR, D-dimer PT 11.6 Seconds (9.4-12.1) 03/15/17 11:54 - VTE Documentation of Mechanical Device: Intermittent pneumatic compression device Consult Discharge Plan - Plan Referrals: Nica Babcock MD [Primary Care Provider] - Flavia Redmond [Family Provider] -
[2017-03-20] MEDS: Divalproex (12 HR) 500 MG TABLET PO SCH (10:46)
[2017-03-20] MEDS: Gabapentin 300 MG CAPSULE PO SCH ×3 (10:47→20:34)
[2017-03-20] MEDS: amLODIPine 5 MG TABLET PO SCH (10:47)
[2017-03-20] MEDS ORDERED: Vancomycin 1,250 MG in D5% in Water 250 ML IVPB SCH (11:00)
--- NOTE | 2017-03-20 11:24 | Palliative Progress Note ---
Date of Encounter: 03/20/17 Time of Encounter: 11:15 - Assessment and plan (1) Dysphagia Current Visit: Yes Status: Acute Assessment and plan: Still refusing to eat/drink. I attempted this am - she would not open her mouth. Qualifiers: Dysphagia type: unspecified Qualified Code(s): R13.10 - Dysphagia, unspecified (2) Goals of care, counseling/discussion Current Visit: Yes Status: Acute Assessment and plan: ECF placement issues - social media specialist aware and [facility] . If [facility] Polanco works out payment with family, she can be discharged. Bao Polanco can set up hospice care. Will continue to follow. (3) Dementia Current Visit: Yes Status: Acute Qualifiers: Qualified Code(s): F03.90 - Unspecified dementia without behavioral disturbance (4) Hypernatremia Current Visit: Yes Status: Acute - Time Spent With Patient Total time spent is greater than 50% in coordination of care (as documented) at patient's floor/unit and/or counseling patient: 25 - 35 minutes - Subjective Interval history: Patient sleeping on my arrival. Awakens when name called. No family present. Little verbal response - does not follow commands. Does state "No" when asked if she is uncomfortable. - Constitutional Vitals: Abnormal lab results RBC 3.51 M/mcL (3.82-4.97) L 03/20/17 04:27 Hgb 11.1 g/dL (11.5-15.4) L 03/20/17 04:27 Hct 31.9 % (35.3-44.9) L 03/20/17 04:27 Plt Count 123 K/mcL (140-400) L 03/20/17 04:27 Nucleated RBCs/100 WBC 0.3 /100 WBC (0) H 03/19/17 04:36 Sodium 133 mEq/L (136-145) L 03/20/17 04:27 BUN 4 mg/dL (8-23) L 03/20/17 04:27 Glucose 175 mg/dL (70-105) H 03/20/17 04:27 POC Glucose 272 (58-89) H 03/19/17 16:28 Calculated Osmolality 277 (280-300) L 03/20/17 04:27 Calcium 8.4 mg/dL (8.6-10.3) L 03/20/17 04:27 Troponin I 0.04 ng/mL (< 0.04) H* 03/16/17 00:21 B-Natriuretic Peptide 224 pg/mL (Less than 100) H 03/15/17 11:54 Ur Specimen Adequacy See below A 03/15/17 22:45 Urine Clarity Turbid (Clear) A 03/16/17 14:50 Urine Blood Large (Negative) H 03/16/17 14:50 Urine Bilirubin Small (Negative) H 03/16/17 14:50 Urine Urobilinogen 2.0 mg/dL (Normal) H 03/16/17 14:50 Ur Leukocyte Esterase Moderate (Negative) H 03/16/17 14:50 Urine Microscopic RBC 5-15 per hpf (0-3) H 03/16/17 14:50 Urine Microscopic WBC 50-100 per hpf (0-3) H 03/16/17 14:50 Ur Squamous Epith Cells Moderate per lpf (None-Few) H 03/16/17 14:50 Urine Bacteria Many per hpf (None-Few) H 03/16/17 14:50 Urine Yeast Moderate per hpf (None Seen) H 03/16/17 14:50 Ur Culture Indicated? YES (NO) A 03/16/17 14:50 Palliative Quality Palliative Quality: Screen for Code Status: Yes, Screen for Goals of Care: Yes, Screen for Pain: Yes, If Pain Regimen Started, Initiate Bowel Regimen: NA, Screen for Nausea/Vomitting: Yes Code Status: 03/19/17 15:11 DNR [Resuscitation Status: Active] [RES] Routine Comment: Resuscitation Status: DNR-Comfort Care - Labs CBC & Chem 7: 03/20/17 04:27 03/20/17 04:27 Labs: Laboratory Results - last 24 hr 03/18/17 03/18/17 03/18/17 06:54 10:53 15:00 WBC RBC Hgb Hct MCV MCH MCHC RDW Plt Count MPV Immature Gran % Seg Neutrophils % Lymphocytes % Monocytes % Eosinophils % Basophils % Neutrophils # Lymphocytes # Monocytes # Eosinophils # Basophils # Sodium Potassium Chloride Carbon Dioxide BUN Creatinine Est GFR ( Amer) Est GFR (Non-Af Amer) BUN/Creatinine Ratio Glucose POC Glucose 196 H 142 H 237 H Calculated Osmolality Calcium Magnesium 03/18/17 03/19/17 03/19/17 19:39 07:39 11:54 WBC RBC Hgb Hct MCV MCH MCHC RDW Plt Count MPV Immature Gran % Seg Neutrophils % Lymphocytes % Monocytes % Eosinophils % Basophils % Neutrophils # Lymphocytes # Monocytes # Eosinophils # Basophils # Sodium Potassium Chloride Carbon Dioxide BUN Creatinine Est GFR ( Amer) Est GFR (Non-Af Amer) BUN/Creatinine Ratio Glucose POC Glucose 176 H 212 H 210 H Calculated Osmolality Calcium Magnesium 03/19/17 03/20/17 03/20/17 16:28 04:27 04:27 WBC 5.3 RBC 3.51 L Hgb 11.1 L Hct 31.9 L MCV 90.9 MCH 31.6 MCHC 34.8 RDW 14.2 Plt Count 123 L MPV 9.6 Immature Gran % 0.9 Seg Neutrophils % 56.3 Lymphocytes % 32.6 Monocytes % 7.7 Eosinophils % 2.1 Basophils % 0.4 Neutrophils # 3.0 Lymphocytes # 1.7 Monocytes # 0.4 Eosinophils # 0.1 Basophils # 0.0 Sodium 133 L Potassium 3.5 Chloride 100 Carbon Dioxide 28 BUN 4 L Creatinine 0.64 Est GFR ( Amer) > 60 Est GFR (Non-Af Amer) > 60 BUN/Creatinine Ratio 6 Glucose 175 H POC Glucose 272 H Calculated Osmolality 277 L Calcium 8.4 L Magnesium 03/20/17 04:27 WBC RBC Hgb Hct MCV MCH MCHC RDW Plt Count MPV Immature Gran % Seg Neutrophils % Lymphocytes % Monocytes % Eosinophils % Basophils % Neutrophils # Lymphocytes # Monocytes # Eosinophils # Basophils # Sodium Potassium Chloride Carbon Dioxide BUN Creatinine Est GFR ( Amer) Est GFR (Non-Af Amer) BUN/Creatinine Ratio Glucose POC Glucose Calculated Osmolality Calcium Magnesium 1.6 - ABG Interpretation ABG results: PT/INR, D-dimer PT 11.6 Seconds (9.4-12.1) 03/15/17 11:54 Consult Discharge Plan - Plan Referrals: Nica Babcock MD [Primary Care Provider] - Flavia Redmond [Family Provider] -
[2017-03-20] MEDS: Levothyroxine Sodium 100 MCG VIAL IVP SCH (11:41)
[2017-03-20] MEDS: Insulin LISPRO 300 UNITS/3 ML VIAL SQ SCH ×3 (11:41→20:33)
[2017-03-20] MEDS: Famotidine 20 MG/2 ML VIAL IVP SCH (11:41)
[2017-03-21] MEDS: D5% in Water 1,000 ML IVC SCH ×4 (03:21→06:42)
[2017-03-21] MEDS: *HR* Heparin 5,000 UNIT/ML VIAL SQ SCH (06:21)
[2017-03-21] MEDS: cefTRIAXone 1,000 MG in Water for inj. (sterile) 10 ML IVP SCH (06:25)
[2017-03-21 08:17] LABS: Basophils % 0.4 %; Eosinophils # 0.1 K/mcL (0.0-0.6); Eosinophils % 1.9 %; Hematocrit 30.9 % (35.3-44.9); Immature Granulocytes % 1.3 % (0-4); Immature Platelets 2.5 % (1.1-6.1); Lymphocytes # 1.5 K/mcL (0.6-4.6); Lymphocytes % 28.9 %; Mean Corpuscular HGB Conc 35.6 g/dL (31.6-35.5); Mean Corpuscular Hemoglobin 32.3 pg (28.0-33.3); Mean Corpuscular Volume 90.6 fL (83.0-100.0); Mean Platelet Volume 10.2 fL (9.4-12.4); Monocytes # 0.4 K/mcL (0.0-1.3); Monocytes % 8.3 %; Neutrophils # 3.1 K/mcL (1.6-8.9); Nucleated Red Blood Cells 0.8 /100 WBC (0); Platelet Count 146 K/mcL (140-400); Red Blood Count 3.41 M/mcL (3.82-4.97); Red Cell Distribution Width 14.6 % (11.5-14.5); Segmented Neutrophils % 59.2 %
[2017-03-21] MEDS: Famotidine 20 MG/2 ML VIAL IVP SCH (08:40)
[2017-03-21] MEDS: Insulin LISPRO 300 UNITS/3 ML VIAL SQ SCH ×2 (08:40→12:57)
[2017-03-21] MEDS: Levothyroxine Sodium 100 MCG VIAL IVP SCH (08:43)
[2017-03-21] MEDS: Divalproex (12 HR) 500 MG TABLET PO SCH (08:56)
[2017-03-21] MEDS: amLODIPine 5 MG TABLET PO SCH (08:57)
--- NOTE | 2017-03-21 09:15 | Palliative Progress Note ---
Date of Encounter: 03/21/17 Time of Encounter: 09:00 - Assessment and plan (1) Dysphagia Current Visit: Yes Status: Acute Assessment and plan: Does appear to swallow water without difficulty. Refusing food Qualifiers: Dysphagia type: unspecified Qualified Code(s): R13.10 - Dysphagia, unspecified (2) Goals of care, counseling/discussion Current Visit: Yes Status: Acute Assessment and plan: Met with daughter Isaura(POA) yesterday. Plan is to discharge today if ok with hospitalist to [facility] in [place] and [facility] will enroll her there. D/W Dr. Harvey. She has not required any comfort medications during this admission - will not send with scripts and let [facility] order their comfort pack after admission. (3) Dementia Current Visit: Yes Status: Acute Qualifiers: Qualified Code(s): F03.90 - Unspecified dementia without behavioral disturbance (4) Hypernatremia Current Visit: Yes Status: Acute - Time Spent With Patient Total time spent is greater than 50% in coordination of care (as documented) at patient's floor/unit and/or counseling patient: 25 - 35 minutes - Subjective Interval history: Patient awake today - confused but responding verbally. States her legs hurt and wanting EPCD's off. Did take few sips water, but refuses any po intake. Attempted to feed, and she will not open mouth and shakes her head no. No family present. - Constitutional Vitals: Abnormal lab results RBC 3.41 M/mcL (3.82-4.97) L 03/21/17 06:04 Hgb 11.0 g/dL (11.5-15.4) L 03/21/17 06:04 Hct 30.9 % (35.3-44.9) L 03/21/17 06:04 MCHC 35.6 g/dL (31.6-35.5) H 03/21/17 06:04 RDW 14.6 % (11.5-14.5) H 03/21/17 06:04 Nucleated RBCs/100 WBC 0.8 /100 WBC (0) H 03/21/17 06:04 Sodium 133 mEq/L (136-145) L 03/20/17 04:27 BUN 4 mg/dL (8-23) L 03/20/17 04:27 Glucose 175 mg/dL (70-105) H 03/20/17 04:27 POC Glucose 200 (58-89) H 03/20/17 20:16 Calculated Osmolality 277 (280-300) L 03/20/17 04:27 Calcium 8.4 mg/dL (8.6-10.3) L 03/20/17 04:27 Troponin I 0.04 ng/mL (< 0.04) H* 03/16/17 00:21 B-Natriuretic Peptide 224 pg/mL (Less than 100) H 03/15/17 11:54 Ur Specimen Adequacy See below A 03/15/17 22:45 Urine Clarity Turbid (Clear) A 03/16/17 14:50 Urine Blood Large (Negative) H 03/16/17 14:50 Urine Bilirubin Small (Negative) H 03/16/17 14:50 Urine Urobilinogen 2.0 mg/dL (Normal) H 03/16/17 14:50 Ur Leukocyte Esterase Moderate (Negative) H 03/16/17 14:50 Urine Microscopic RBC 5-15 per hpf (0-3) H 03/16/17 14:50 Urine Microscopic WBC 50-100 per hpf (0-3) H 03/16/17 14:50 Ur Squamous Epith Cells Moderate per lpf (None-Few) H 03/16/17 14:50 Urine Bacteria Many per hpf (None-Few) H 03/16/17 14:50 Urine Yeast Moderate per hpf (None Seen) H 03/16/17 14:50 Ur Culture Indicated? YES (NO) A 03/16/17 14:50 General appearance: Present: no acute distress - Respiratory Respiratory exam: Present: decreased breath sounds, CTAB - Cardiovascular Cardiovascular exam: Present: +S1, +S2 - GI/Abdominal GI/Abdominal exam: Present: normal bowel sounds, soft - Extremities Exam Extremities exam: Present: normal capillary refill, normal inspection - Neurological Exam Neurological exam: Present: alert Additional comments: Oriented to name only. - Skin Skin exam: Present: dry, pallor, warm Palliative Quality Palliative Quality: Screen for Code Status: Yes, Screen for Goals of Care: Yes, Screen for Pain: Yes, If Pain Regimen Started, Initiate Bowel Regimen: NA, Screen for Nausea/Vomitting: Yes Code Status: 03/19/17 15:11 DNR [Resuscitation Status: Active] [RES] Routine Comment: Resuscitation Status: DNR-Comfort Care - Labs CBC & Chem 7: 03/21/17 06:04 03/20/17 04:27 Labs: Laboratory Results - last 24 hr 03/19/17 03/20/17 03/21/17 20:27 20:16 06:04 WBC 5.2 RBC 3.41 L Hgb 11.0 L Hct 30.9 L MCV 90.6 MCH 32.3 MCHC 35.6 H RDW 14.6 H Plt Count 146 MPV 10.2 Immature Gran % 1.3 Seg Neutrophils % 59.2 Lymphocytes % 28.9 Monocytes % 8.3 Eosinophils % 1.9 Basophils % 0.4 Neutrophils # 3.1 Lymphocytes # 1.5 Monocytes # 0.4 Eosinophils # 0.1 Basophils # 0.0 Nucleated RBCs/100 WBC 0.8 H Immature Plt Fraction 2.5 POC Glucose 136 H 200 H Specimen Rejected 03/21/17 06:04 WBC RBC Hgb Hct MCV MCH MCHC RDW Plt Count MPV Immature Gran % Seg Neutrophils % Lymphocytes % Monocytes % Eosinophils % Basophils % Neutrophils # Lymphocytes # Monocytes # Eosinophils # Basophils # Nucleated RBCs/100 WBC Immature Plt Fraction POC Glucose Specimen Rejected Hemolyzed - ABG Interpretation ABG results: PT/INR, D-dimer PT 11.6 Seconds (9.4-12.1) 03/15/17 11:54 Consult Discharge Plan - Plan Referrals: Nica Babcock MD [Primary Care Provider] - Flavia Redmond [Family Provider] -
[2017-03-21 09:39] LABS: BUN/Creatinine Ratio 6 (6-26); Blood Urea Nitrogen 4 mg/dL (8-23); Calcium 8.3 mg/dL (8.6-10.3); Carbon Dioxide 24 mEq/L (23-29); Chloride 101 mEq/L (98-107); Glucose 179 mg/dL (70-105); Osmolality,Calculated 273 (280-300); Potassium 3.8 mEq/L (3.5-5.1); Sodium 131 mEq/L (136-145); eGFR For African Americans > 60 (> 60); eGFR For Non-African Americans > 60 (> 60)
--- NOTE | 2017-03-21 10:56 | Discharge Summary ---
Date of Encounter: 03/21/17 Time of Encounter: 10:54 - Discharge Diagnosis (1) Hypernatremia Priority: Primary Status: Acute (2) Elevated troponin Priority: Secondary Status: Acute Comments: likely secondary to demad ischemia (3) Dementia Priority: Secondary Status: Acute Qualifiers: Dementia type: Alzheimer's disease Alzheimer's disease onset: unspecified onset Dementia behavioral disturbance: without behavioral disturbance Qualified Code(s): G30.9 - Alzheimer's disease, unspecified; F02.80 - Dementia in other diseases classified elsewhere without behavioral disturbance; F02.80 - Dementia in other diseases classified elsewhere without behavioral disturbance; F02.80 - Dementia in other diseases classified elsewhere without behavioral disturbance (4) Hypothyroidism Priority: Secondary Status: Acute Qualifiers: Hypothyroidism type: acquired Qualified Code(s): E03.9 - Hypothyroidism, unspecified (5) UTI (urinary tract infection) Priority: Primary Status: Acute Comments: growing enterococcus asnsitive to ampicillin, and Staphylococcus epidermidis sensitive to doxycycline Qualifiers: Urinary tract infection type: catheter-associated UTI Indwelling urinary catheter type: indwelling urethral catheter Encounter type: subsequent encounter Qualified Code(s): T83.511D - Infection and inflammatory reaction due to indwelling urethral catheter, subsequent encounter; N39.0 - Urinary tract infection, site not specified; N39.0 - Urinary tract infection, site not specified (6) Dysphagia Priority: Secondary Status: Acute Qualifiers: Dysphagia type: unspecified Qualified Code(s): R13.10 - Dysphagia, unspecified - Discharge Medications Prescriptions: Amoxicillin [Amoxil] 500 mg PO TID #15 capsule Doxycycline 100 mg PO BID #10 capsule LORazepam [Ativan] 1 mg PO BID #10 tablet Home Medications: Albuterol Sulfate [Ventolin Hfa] 2 puff IH Q4H PRN 03/15/17 [History] Amlodipine Besylate 10 mg PO DAILY 03/15/17 [History] Divalproex (12 HR) [Depakote (12 HR)] 500 mg PO DAILY 03/15/17 [History] Donepezil [Aricept] 10 mg PO HS 03/15/17 [History] Escitalopram [Lexapro] 20 mg PO DAILY 03/15/17 [History] Gabapentin [Neurontin] 300 mg PO TID 03/15/17 [History] Glimepiride [Amaryl] 4 mg PO QAM 03/15/17 [History] Glucagon,Human Recombinant [Glucagen] 1 mg IM ONCE PRN 03/15/17 [History] Insulin LISPRO [HumaLOG] 0 unit SQ AD 03/15/17 [History] Ipratropium/Albuterol Neb [Duoneb] 3 ml IH Q4H PRN 03/15/17 [History] Levothyroxine [Synthroid] 50 mcg PO 0630 03/15/17 [History] Losartan Potassium [Cozaar] 50 mg PO DAILY 03/15/17 [History] Memantine HCl 10 mg PO BID 03/15/17 [History] Oxygen 2 l NS AD 03/15/17 [History] Propranolol HCl 40 mg PO DAILY 03/15/17 [History] Quetiapine Fumarate [Seroquel] 50 mg PO QAM 03/15/17 [History] Quetiapine Fumarate [Seroquel] 150 mg PO HS 03/15/17 [History] Amoxicillin [Amoxil] 500 mg PO TID #15 capsule 03/21/17 [Rx] Doxycycline 100 mg PO BID #10 capsule 03/21/17 [Rx] LORazepam [Ativan] 1 mg PO BID #10 tablet 03/21/17 [Rx] Allergies/Adverse Reactions: 3 Allergy/AdvReac Type Severity Reaction Status Date / Time duloxetine [From Cymbalta] Allergy See Verified 03/15/17 11:28 Comments levofloxacin [From Levaquin] Allergy See Verified 03/15/17 11:28 Comments pregabalin [From Lyrica] Allergy See Verified 03/15/17 11:28 Comments Date of admission: 03/15/17 18:28 Primary care physician: Nica Babcock MD Consults: 03/15/17 19:58 Consult to Api Developer [CONS] Routine Reason for SW Consult: From ECF, Discharge Planning. 03/19/17 11:27 Consult to Palliative Care [CONS] Routine Comment: Consulting Provider: Palliative Care Catie Reason for Consult: goals of care Call Completed: No - Patient Status Disposition: Transfer SNF Condition: Fair - Discharge Instructions Follow Up With: Nica Babcock MD [Primary Care Provider] - Flavia Redmond [Family Provider] - Additional Instructions: Continue doxycycline and amoxicillin for 5 days. Start hospice services as outpatient, pureed diet with nectar thick liquids - Diet and Activity Activity: increase activity as tolerated Diet: other (pureed diet with nectar thick liquids) Hospital course: Ms. Herrera is a 87 year old female with history of CVA, HTN, DM2, HLD, dementia with severe functional and cognitive decline , was hospitalized a month ago with pneumonia presented from PCP office because of hypernatremia and confusion. Patient was found at the PCP office to have a sodium level of 155. Patient was confused lethargic the past week. Patient mentioned that this has happened several times when sodium was checked at the group home and she had received multiple times D5 water but the problem hypernatremia persists. Patient have problem with aspiration and could not take thin liquids or water. Patient has been on oxygen since last discharge from the hospital with pneumonia. Was found to have a UIT, treated with Rocephin , currently on Vancomycin IV for enterococcus and Staph epidermidis. Declining mentally, palliative care service was consulted , family agreed to start hospice once the patient is discharged to an ECF. Will continue antibiotics for now. - Time Spent with Patient Total time spent providing and/or coordinating discharge services: Greater than 30 minutes (40 min) - Constitutional Vitals: Temp Pulse Resp BP Pulse Ox 98.4 F 72 17 121/71 99 03/21/17 07:34 03/21/17 07:34 03/21/17 07:34 03/21/17 07:34 03/21/17 07:34 General appearance: Present: A&O X 1, morbidly obese - Head Head exam: Present: atraumatic, normocephalic - Eye Eye exam: Present: PERRL, conjuntiva pink, sclera anicteric Pupils: Present: PERRL - Neck Neck exam general surgery: Present: supple, trachea midline. Absent: lymphadenopathy - Respiratory Respiratory exam: Present: decreased breath sounds, CTAB. Absent: accessory muscle use, rales, rhonchi, wheezes - Cardiovascular Cardiovascular exam: Present: RRR, +S1, +S2. Absent: diastolic murmur, gallop, rubs, systolic murmur - GI/Abdominal GI/Abdominal exam: Present: distended, normal bowel sounds, soft, no peritoneal signs. Absent: tenderness Additional comments: ecchymotic areas in abdomen likely due to heparin - Extremities Exam Extremities exam: Present: warm, radial pulses palpable and symmetrical. Absent : calf tenderness, cyanotic, pedal edema - Neurological Exam Neurological exam: Present: CN II-XII intact, no focal deficits. Absent: oriented X3, pronater drift, facial droop, speech deficit - Skin Skin exam: Present: dry, intact - VTE Documentation of Mechanical Device: Intermittent pneumatic compression device
[2017-03-21] MEDS ORDERED: Amoxicillin 500 MG CAPSULE PO SCH (11:00)
[2017-03-21] MEDS ORDERED: Doxycycline 100 MG CAPSULE PO SCH (11:00)
--- NOTE | 2017-03-21 11:13 | Physician Discharge Referral ---
ExtendedCare Referral Info Provider in Charge after Transfer: PCP Institutional Level of Care: Skilled - Diagnosis (1) Hypernatremia Status: Acute (2) Elevated troponin Status: Acute (3) Dementia Status: Acute (4) Hypothyroidism Status: Acute (5) UTI (urinary tract infection) Status: Acute (6) Dysphagia Status: Acute - Transfer Medications Prescriptions: Amoxicillin [Amoxil] 500 mg PO TID #15 capsule Doxycycline 100 mg PO BID #10 capsule LORazepam [Ativan] 1 mg PO BID #10 tablet Home Medications: Albuterol Sulfate [Ventolin Hfa] 2 puff IH Q4H PRN 03/15/17 [History] Amlodipine Besylate 10 mg PO DAILY 03/15/17 [History] Divalproex (12 HR) [Depakote (12 HR)] 500 mg PO DAILY 03/15/17 [History] Donepezil [Aricept] 10 mg PO HS 03/15/17 [History] Escitalopram [Lexapro] 20 mg PO DAILY 03/15/17 [History] Gabapentin [Neurontin] 300 mg PO TID 03/15/17 [History] Glimepiride [Amaryl] 4 mg PO QAM 03/15/17 [History] Glucagon,Human Recombinant [Glucagen] 1 mg IM ONCE PRN 03/15/17 [History] Insulin LISPRO [HumaLOG] 0 unit SQ AD 03/15/17 [History] Ipratropium/Albuterol Neb [Duoneb] 3 ml IH Q4H PRN 03/15/17 [History] Levothyroxine [Synthroid] 50 mcg PO 0630 03/15/17 [History] Losartan Potassium [Cozaar] 50 mg PO DAILY 03/15/17 [History] Memantine HCl 10 mg PO BID 03/15/17 [History] Oxygen 2 l NS AD 03/15/17 [History] Propranolol HCl 40 mg PO DAILY 03/15/17 [History] Quetiapine Fumarate [Seroquel] 50 mg PO QAM 03/15/17 [History] Quetiapine Fumarate [Seroquel] 150 mg PO HS 03/15/17 [History] Amoxicillin [Amoxil] 500 mg PO TID #15 capsule 03/21/17 [Rx] Doxycycline 100 mg PO BID #10 capsule 03/21/17 [Rx] LORazepam [Ativan] 1 mg PO BID #10 tablet 03/21/17 [Rx] Allergies/Adverse Reactions: 3 Allergy/AdvReac Type Severity Reaction Status Date / Time duloxetine [From Cymbalta] Allergy See Verified 03/15/17 11:28 Comments levofloxacin [From Levaquin] Allergy See Verified 03/15/17 11:28 Comments pregabalin [From Lyrica] Allergy See Verified 03/15/17 11:28 Comments - Respiratory Orders Smoking Cessation: Smoking cessation has been advised. For more information, call the [place] Tobacco Quit Line at 3-964-QCJUNOW. - Advance Directives Code Status: DNR-Comfort Care - Treatments List/Other: Continue doxycycline and amoxicillin for 5 days. Start hospice services as outpatient, pureed diet with nectar thick liquids CERTIFICATION: I certify that the transfer of the above named patient to an Extended Care Facility is necessary for the continuing treatment of the diagnosis listed. The above information is true and accurate reflection of patient's current condition. Confidential - Redisclosure prohibited without a patient's written consent.
[2017-03-21] MEDS: Gabapentin 300 MG CAPSULE PO SCH (11:57)
[2017-03-21 12:16] VITALS: BP 105/68
[2017-03-21] MEDS ORDERED: Aminoglycoside Consult 1 EACH MC ONE (14:44)
== END 2017-03-21 14:45 ==
LOC: EMEROO 11:15 → INTOOBSV 18:28 → SUATTDRO 18:28 → 3BNU 18:28
PROVIDERS: ADMIT Pediatrics; ATTEND Internal Medicine